=== PATIENT | male | born 1965 | race Caucasian/White ===

== ENCOUNTER → 2018-11-14 09:57 | Outpatient (CLI) | payer BC, SELFPAY ==
[2018-11-14 13:31] LABS: Alanine Aminotransferase 43 U/L (12-78); Albumin Level 3.9 gm/dL (3.4-5.0); Albumin/Globulin Ratio 1.3 (1.1-1.8); Alkaline Phosphatase 76 U/L (46-116); Anion Gap 17.2 mEq/L (5-15); Aspartate Amino Transferase 26 U/L (15-37); Bilirubin,Total 0.5 mg/dL (0.2-1.0); Blood Urea Nitrogen 15 mg/dL (7-18); Calcium 8.9 mg/dL (8.5-10.1); Carbon Dioxide 25 mmol/L (21.0-32.0); Chloride 106 mmol/L (98-107); Chol/HDL Ratio 3.7 (1-3.5); Cholesterol 133 mg/dL (140-200); Creatinine,Serum 0.95 mg/dL (0.70-1.30); Estimated Glomerular Filt Rate 83 ml/min (>60); GFR (African American) 100 ML/MIN (>60); Globulin 2.9 gm/dl (1.3-3.2); Glucose 106 mg/dL (74-106); HDL Cholesterol 36 mg/dL (27-67); LDL Cholesterol 72 mg/dL (0-130); Potassium 4.2 mmoL/L (3.5-5.1); Prostate Specific Ag, Diagnost 0.66 ng/mL (0.0-4.0); Sodium 144 mmol/L (136-145); Total Protein,Serum 6.8 gm/dL (6.4-8.2); Triglycerides 126 mg/dL (30-200); VLDL Cholesterol 25 mg/dL (0-40)
== END ==
PROVIDERS: Visit Provider Internal Medicine
DX: E78.5 Hyperlipidemia, unspecified (principal); G47.33 Obstructive sleep apnea (adult) (pediatric); R39.12 Poor urinary stream
CPT/HCPCS: 36415; 80053; 80061; 84153

== ENCOUNTER → 2019-06-14 11:02 | Outpatient (CLI) | payer BC, SELFPAY ==
--- NOTE | 2019-06-14 11:09 | XR_ITS ---
PROCEDURE: XR LUMBAR SPINE MIN 4V CLINICAL INDICATION: S/P FALL 1 WEEK AGO Fall with injury and pain COMPARISON: None FINDINGS: Minimal lumbar curvature convex left. The disc spaces are well preserved. No fracture or dislocation. No lytic or blastic change.There is slight reversal of the thoracolumbar lordosis which could be due to patient positioning or muscle spasm IMPRESSION: Slight reversal of the thoracolumbar lordosis otherwise negative lumbar spine Dictated by: Dex Dyer MD 06/14/2019 12:36 Electronically signed by Dex Dyer MD in [place] 06/14/2019 12:36
== END ==
PROVIDERS: PCP Internal Medicine; Visit Provider Internal Medicine
DX: M53.3 Sacrococcygeal disorders, not elsewhere classified (principal); M54.5 Low back pain; W19.XXXA Unspecified fall, initial encounter
CPT/HCPCS: 72110

== ENCOUNTER → 2021-12-12 07:41 | Outpatient (CLI) | payer BC, SELFPAY ==
[2021-12-12 08:54] LABS: Basophils # 0.1 K/mm3 (0-0.2); Basophils % 1.6 % (0.1-2.0); Eosinophils # 0.4 K/mm3 (0.0-0.4); Eosinophils % 5.5 % (0.1-12.0); Hematocrit 49.9 % (42.0-52.0); Hemoglobin 16.8 g/dL (14.1-18.0); Lymphocytes # 2.3 K/mm3 (0.7-4.5); Lymphocytes % 35.8 % (10-50); Mean Corpuscular HGB Conc 33.7 g/dL (31.8-35.4); Mean Corpuscular Hemoglobin 31.9 pg (27.0-31.2); Mean Corpuscular Volume 94.5 fl (80-94); Mean Platelet Volume 8.6 fl (7.4-10.4); Monocytes # 0.4 K/mm3 (0.1-1.0); Monocytes % 6.8 % (1.7-9.3); Neutrophils # 3.2 K/mm3 (1.8-7.8); Neutrophils % 50.2 % (37.0-80.0); Platelet Count 204 K/mm3 (142-424); Red Blood Count 5.28 M/mm3 (4.60-6.20); Red Cell Distribution Width 13.8 % (11.5-17.5); White Blood Count 6.4 K/mm3 (4.8-10.8)
[2021-12-12 09:03] LABS: Chloride 104 mmol/L (98-107); Sodium 140 mmol/L (136-145)
[2021-12-12 09:04] LABS: Potassium 4.5 mmoL/L (3.5-5.1)
[2021-12-12 09:06] LABS: Alanine Aminotransferase 28 U/L (12-78); Albumin Level 4.5 g/dl (3.5-5.0); Alkaline Phosphatase 56 U/L (38-126); Aspartate Amino Transferase 31 U/L (17-59); Bilirubin,Total 0.8 mg/dl (0.2-1.3); Cholesterol 134 mg/dl (140-200); Triglycerides 132 mg/dl (30-150); VLDL Cholesterol 26 mg/dL (0-40)
[2021-12-12 09:07] LABS: Albumin/Globulin Ratio 1.8 (1.1-1.8); Calcium 9.6 mg/dl (8.4-10.2); Chol/HDL Ratio 3.5 (1-3.5); Globulin 2.5 g/dL (1.3-3.2); Glucose 103 mg/dl (74-100); HDL Cholesterol 38 mg/dl (40-60)
[2021-12-12 09:08] LABS: Estimated Glomerular Filt Rate 100 ml/min (>60); GFR (African American) 121 ML/MIN (>60)
[2021-12-12 09:18] LABS: Direct LDL Cholesterol 76.11 mg/dL (100-129)
[2021-12-12 10:07] LABS: Prostate Specific Ag, Diagnost 0.778 ng/ml (0.0-4.0)
[2021-12-12 10:19] LABS: Anion Gap 11.5 mEq/L (5-15); Blood Urea Nitrogen 15 mg/dl (9-20); Carbon Dioxide 29 mmol/L (22.0-30.0)
== END ==
PROVIDERS: PCP Internal Medicine; Visit Provider Internal Medicine
DX: E78.5 Hyperlipidemia, unspecified (principal); G25.81 Restless legs syndrome; G47.33 Obstructive sleep apnea (adult) (pediatric); N40.1 Benign prostatic hyperplasia with lower urinary tract symptoms
CPT/HCPCS: 36415; 80053; 80061; 84153; 85025

== ENCOUNTER → 2022-01-06 16:52 | Outpatient (CLI) | payer BC, SELFPAY | PROVIDERS: PCP Internal Medicine; Visit Provider Internal Medicine | DX: L73.9 Follicular disorder, unspecified (principal); B95.61 Methicillin susceptible Staphylococcus aureus infection as the cause of diseases classified elsewhere ==

== ENCOUNTER → 2022-01-06 16:53 | Outpatient (CLI) | payer BC, SELFPAY | PROVIDERS: PCP Internal Medicine; Visit Provider Internal Medicine | DX: L73.9 Follicular disorder, unspecified (principal); B95.61 Methicillin susceptible Staphylococcus aureus infection as the cause of diseases classified elsewhere | CPT/HCPCS: 87070; 87077; 87186; 87205 ==

== ENCOUNTER 2024-03-17 08:42 | Outpatient (CLI) | payer BC, SELFPAY ==
[2024-03-17 09:09] LABS: Basophils # 0.1 K/mm3 (0-0.2); Basophils % 0.9 % (0.1-2.0); Eosinophils # 0.3 K/mm3 (0.0-0.4); Eosinophils % 4.4 % (0.1-12.0); Hematocrit 46.3 % (42.0-52.0); Lymphocytes # 1.9 K/mm3 (0.7-4.5); Lymphocytes % 33.6 % (10-50); Mean Corpuscular HGB Conc 34.6 g/dL (31.8-35.4); Mean Corpuscular Hemoglobin 31.1 pg (27.0-31.2); Mean Platelet Volume 8.2 fl (7.4-10.4); Monocytes # 0.3 K/mm3 (0.1-1.0); Monocytes % 5.8 % (1.7-9.3); Neutrophils # 3.1 K/mm3 (1.8-7.8); Neutrophils % 55.3 % (37.0-80.0); Platelet Count 185 K/mm3 (142-424); Red Blood Count 5.14 M/mm3 (4.60-6.20); Red Cell Distribution Width 13.9 % (11.5-17.5); White Blood Count 5.7 K/mm3 (4.8-10.8)
[2024-03-17 09:36] LABS: Hemoglobin A1C 5.1 % (4.0-6.0)
[2024-03-17 09:41] LABS: Erythrocyte Sedimentation Rate 4 mm/hr (0-20)
[2024-03-17 10:13] LABS: Albumin Level 4.7 g/dl (3.5-5.0); Chloride 108 mmol/L (98-107); Sodium 140 mmol/L (136-145)
[2024-03-17 10:16] LABS: Alanine Aminotransferase 31 U/L (12-78); Albumin/Globulin Ratio 1.9 (1.1-1.8); Alkaline Phosphatase 45 U/L (38-126); Aspartate Amino Transferase 28 U/L (17-59); Bilirubin,Total 0.7 mg/dl (0.2-1.3); Blood Urea Nitrogen 18 mg/dl (9-20); Calcium 9.4 mg/dl (8.4-10.2); Carbon Dioxide 27 mmol/L (22.0-30.0); Cholesterol 132 mg/dl (140-200); Estimated Glomerular Filt Rate 115 ml/min (>60); GFR (African American) 139 ML/MIN (>60); Globulin 2.5 g/dL (1.3-3.2); Glucose 92 mg/dl (74-100); Total Protein,Serum 7.2 g/dl (6.3-8.2); Triglycerides 80 mg/dl (30-150); VLDL Cholesterol 16 mg/dL (0-40)
[2024-03-17 10:17] LABS: Chol/HDL Ratio 2.9 (1-3.5); HDL Cholesterol 45 mg/dl (40-60)
[2024-03-17 10:31] LABS: Free T4 (Free Thyroxine) 0.82 ng/dl (0.78-2.19)
[2024-03-17 10:51] LABS: Ferritin 179 ng/ml (17.9-464)
[2024-03-17 12:13] LABS: Vitamin B12 344 pg/mL (239-931)
[2024-03-17 13:01] LABS: Thyroid Stimulating Hormone 2.47 uIU/mL (0.465-4.68)
[2024-03-20 15:10] LABS: Albumin 4.4 g/dL (2.9-4.4); Alpha-1-Globulin 0.2 g/dL (0.0-0.4); Alpha-2-Globulin 0.7 g/dL (0.4-1.0); Gamma Globulin 0.8 g/dL (0.4-1.8); Protein, Total 7.1 g/dL (6.0-8.5)
[2024-04-13 15:43] LABS: PDF SCANNED IMAGE
== END 2024-03-17 23:59 | disposition home or self-care (01) ==
LOC: LAB 08:43
PROVIDERS: PCP Internal Medicine; Visit Provider Internal Medicine
DX: E78.5 Hyperlipidemia, unspecified (principal); G62.9 Polyneuropathy, unspecified; G25.81 Restless legs syndrome; G47.33 Obstructive sleep apnea (adult) (pediatric); E66.9 Obesity, unspecified; N40.1 Benign prostatic hyperplasia with lower urinary tract symptoms; Z68.29 Body mass index [BMI] 29.0-29.9, adult
CPT/HCPCS: 36415; 80050; 80053; 80061; 82607; 82728; 82746; 83036; 84155; 84439; 84443; 85025; 85651

== ENCOUNTER 2025-01-23 07:43 | Outpatient (CLI) | payer BC, SELFPAY ==
[2025-01-23 08:11] LABS: Hematocrit 44.7 % (42.0-52.0); Hemoglobin 15.3 g/dL (14.1-18.0); Immature Granulocytes % 0.2 %; Mean Corpuscular HGB Conc 34.2 g/dL (31.8-35.4); Mean Corpuscular Hemoglobin 31.1 pg (27.0-31.2); Mean Corpuscular Volume 90.9 fl (80-94); Nucleated Red Blood Cells % 0 %; Platelet Count 194 K/mm3 (142-424); Red Blood Count 4.92 M/mm3 (4.60-6.20); Red Cell Distribution Width-SD 40.9 fL; White Blood Count 5.5 K/mm3 (4.8-10.8)
[2025-01-23 08:36] LABS: Alanine Aminotransferase 21 U/L (12-78); Albumin Level 4.6 g/dl (3.5-5.0); Albumin/Globulin Ratio 2.0 (1.1-1.8); Alkaline Phosphatase 51 U/L (38-126); Anion Gap 12.3 mEq/L (5-15); Aspartate Amino Transferase 28 U/L (17-59); Bilirubin,Total 0.7 mg/dl (0.2-1.3); Blood Urea Nitrogen 17 mg/dl (9-20); Calcium 9.4 mg/dl (8.4-10.2); Carbon Dioxide 26 mmol/L (22.0-30.0); Chloride 107 mmol/L (98-107); Cholesterol 109 mg/dl (140-200); Creatinine,Serum 0.70 mg/dl (0.66-1.25); Estimated Glomerular Filt Rate 115 ml/min (>60); GFR (African American) 139 ML/MIN (>60); Globulin 2.3 g/dL (1.3-3.2); Glucose 87 mg/dl (74-100); HDL Cholesterol 34 mg/dl (40-60); Potassium 4.3 mmoL/L (3.5-5.1); Sodium 141 mmol/L (136-145); Total Protein,Serum 6.9 g/dl (6.3-8.2); Triglycerides 165 mg/dl (30-150)
[2025-01-23 09:07] LABS: Thyroid Stimulating Hormone 2.49 uIU/mL (0.465-4.68)
[2025-01-23 09:25] LABS: Vitamin B12 374 pg/mL (239-931)
[2025-01-23 09:36] LABS: Hemoglobin A1C 5.0 % (4.0-6.0)
== END 2025-01-23 23:59 | disposition home or self-care (01) ==
LOC: LAB 07:44
PROVIDERS: PCP Internal Medicine; Visit Provider Internal Medicine
DX: G47.33 Obstructive sleep apnea (adult) (pediatric) (principal); G25.81 Restless legs syndrome; E78.5 Hyperlipidemia, unspecified; G62.9 Polyneuropathy, unspecified; R53.83 Other fatigue; R73.02 Impaired glucose tolerance (oral); Z12.5 Encounter for screening for malignant neoplasm of prostate
CPT/HCPCS: 36415; 80053; 80061; 82607; 83036; 84443; 85025; G0103

== ENCOUNTER 2025-01-29 10:23 | Outpatient (CLI) | payer BC, SELFPAY ==
--- NOTE | 2025-01-29 11:15 | CA_ITS ---
APPROVED REPORT EXAM: Comprehensive 2D, Doppler, and color-flow Echocardiogram Prototype Sewer: Francisca Perdomo RVT Ht: 5 ft 9 in Wt: 202lbs BSA: 2.07 BP: 96/58 mmHg Indications: Dyspnea, fatigue 2D Dimensions LA Volume 36.20 mL LA Volume Index 17.40 mL/m2 (M/F) 16-34 M-Mode Dimensions RVDd 2.22 cm (0.9-2.6) LA Diam 3.39 cm (1.9-4.0) LVDd 5.51 cm (3.5-5.7) LVDs 3.83 cm (3.5-5.7) IVSd 0.54 cm (0.6-1.1) PWd 0.64 cm (0.6-1.1) EF (Teich) 57.40% FS 30.50% EDV (Teich) 148.00 mL TAPSE 2.78 (<1.7) ESV (Teich) 63.10 mL LV Diastology E Decel Time 213 (160-240 msec) E/A Ratio 1.0 Aortic Valve KIRIT Index 1.64 cm2/m2 AoV Peak Jesu. 114.0 (50-130 cm/s) AO Peak GR. 5.20 mmHg AO Mean GR. 3.20 (<5 mmHg) AO VTI 20.9 (18-25 cm) KIRIT (VTI) 3.48 (2.5-4.5 cm2) Mitral Valve MV E Max Jesu. 85.0 (40-130 cm/s) MV A Velocity 81.0 (40-130 cm/s) E/A Ratio 1.05 MV PHT 62.0 ms Pulmonary Valve PV Peak Velocity 102.0 (50-150 cm/s) Left Ventricle The left ventricle is normal size. Left ventricular systolic function is normal. The left ventricular ejection fraction is within the normal range. There is normal left ventricular wall thickness. There is normal LV segmental wall motion. The left ventricular diastolic function is normal. LVEF is 55% Right Ventricle The right ventricle is normal size. The right ventricular systolic function is normal. Atria The left atrium is mildly dilated. The right atrium size is normal. There is no color Doppler evidence of interatrial shunt. Aortic Valve The aortic valve opens well. There is no hemodynamically significant aortic valvular stenosis. No aortic regurgitation is present. Mitral Valve The mitral valve is normal in structure. No evidence of mitral valve stenosis. Mild mitral regurgitation is present. Tricuspid Valve The tricuspid valve leaflets are thin and pliable. Trace tricuspid regurgitation. There is insufficient TR jet to estimate RVSP. Pulmonic Valve The pulmonary valve is grossly normal in structure. Trace pulmonic valve regurgitation is present. Great Vessels The aortic root is normal in size. The ascending aorta is borderline dilated, measuring 3.7 cm in diameter. IVC is normal in size and collapses >50% with inspiration. Pericardium There is no pericardial effusion. Other Information Study Quality: Fair Conclusion Normal biventricular systolic function. Mild LA dilation. Mild MR. The ascending aorta is borderline dilated, measuring 3.7 cm in diameter. Correlation with new or recent CTA chest is suggested. Electronically signed by : Tamiko Patel MD 01/29/2025 12:49:33
== END 2025-01-29 23:59 | disposition home or self-care (01) ==
LOC: RT 10:24
PROVIDERS: PCP Internal Medicine; Visit Provider Internal Medicine
DX: I34.0 Nonrheumatic mitral (valve) insufficiency (principal); I77.810 Thoracic aortic ectasia; I51.7 Cardiomegaly
CPT/HCPCS: 93306

== ENCOUNTER 2025-02-12 07:25 | Outpatient (CLI) | payer BC, SELFPAY ==
[2025-02-12] MEDS: 0.9 % SODIUM CHLORIDE 50 ML VIAL IV (07:46)
[2025-02-12] MEDS: IOPAMIDOL-370 (76%);100ML BOTTLE 100 ML IV (07:46)
[2025-02-12] MEDS: SODIUM CHLORIDE 0.9% 10ML SYR (RAD ONLY) 10 ML IV (07:46)
--- NOTE | 2025-02-12 08:00 | CT_ITS ---
FINAL REPORT TECHNIQUE: Axial imaging of the chest is obtained after the administration of contrast. 3-D MIP reformatted images were also obtained and reviewed per PE protocol. This study was performed with techniques to keep radiation doses as low as reasonably achievable (ALARA). Individualized dose reduction techniques using automated exposure control or adjustment of mA and/or kV according to the patient's size were employed. CLINICAL HISTORY: Dilated proximal aorta on echocardiogram COMPARISON: None FINDINGS: The pulmonary arteries are well filled. There is no evidence of pulmonary embolus. There is no aortic dissection. The ascending aorta measures 34 mm in diameter, which is within normal limits of size. Heart size is normal. There is no mediastinal, hilar, or axillary lymphadenopathy. Mild changes of emphysema are noted. No focal nodules are identified. There is evidence of prior granulomatous disease. There is no pleural or pericardial effusion. There is a nonspecific 13 mm right adrenal nodule. No acute osseous abnormality. IMPRESSION: No evidence of ascending aortic aneurysm is identified. No acute intrathoracic abnormality is noted. There is a nonspecific 13 mm right adrenal nodule. This likely represents an an adenoma in the absence of malignancy. Reviewed, Interpreted and Dictated by Kathleen Connor MD Transcribed by Lolly Oliver Authenticated and [facility]
== END 2025-02-12 23:59 | disposition home or self-care (01) ==
LOC: RAD 07:26
PROVIDERS: PCP Internal Medicine; Visit Provider Internal Medicine
DX: E27.8 Other specified disorders of adrenal gland (principal); I77.810 Thoracic aortic ectasia
CPT/HCPCS: 71275; Q9967